=== PATIENT | male | born 1955 | race Caucasian/White ===

== ENCOUNTER 2017-07-03 11:55 | Emergency (ER) | payer BC ==
[~2017-07-03] VITALS: Ht 182.9 cm; Wt 86.6 kg
[2017-07-03 12:00] VITALS: BP 112/76
[2017-07-03] MEDS ORDERED: FAMOTIDINE (20 MG) 20 MG TABLET ONE (12:08)
[2017-07-03] MEDS ORDERED: diphenhydrAMINE HCL 25 MG CAPSULE ONE (12:08)
[2017-07-03] MEDS ORDERED: predniSONE 20 MG TABLET ONE (12:08)
[2017-07-03] MEDS ORDERED: predniSONE 10 MG TABLET ONE (12:08)
[2017-07-03] MEDS ORDERED: predniSONE 20 MG TABLET PO ONE (12:30)
[2017-07-03] MEDS ORDERED: diphenhydrAMINE HCL ELIX 25 MG/10 ML UDC PO ONE (12:30)
[2017-07-03] MEDS ORDERED: FAMOTIDINE (20 MG) 20 MG TABLET PO ONE (12:30)
== END 2017-07-03 12:16 | disposition home or self-care (01) ==
LOC: ER 11:57
DX: T78.3XXA Angioneurotic edema, initial encounter (principal); I10 Essential (primary) hypertension; Y92.89 Other specified places as the place of occurrence of the external cause
CPT/HCPCS: 99284; A4606; J7512 ×2; Q0163; Z7610